=== PATIENT | female | born 1955 | race Two or more races ===

== ENCOUNTER 2020-12-30 10:27 | Outpatient (CLI) | payer OTHER | END 2020-12-30 10:34 | disposition home or self-care (01) | LOC: MAMO-SONO 10:27 | PROVIDERS: ATTEND Obstetrics & Gynecology | DX: N60.11 Diffuse cystic mastopathy of right breast (principal); Z12.31 Encounter for screening mammogram for malignant neoplasm of breast; Z87.898 Personal history of other specified conditions; N64.59 Other signs and symptoms in breast ==

== ENCOUNTER 2021-01-27 12:59 | Outpatient (CLI) | payer OTHER | END 2021-01-27 13:05 | disposition home or self-care (01) | LOC: NUCLEAR 12:59 | PROVIDERS: ATTEND Obstetrics & Gynecology | DX: M81.0 Age-related osteoporosis without current pathological fracture (principal) ==

== ENCOUNTER 2022-08-08 13:51 | Outpatient (CLI) | payer OTHER | END 2022-08-08 14:00 | disposition home or self-care (01) | LOC: MAMO-SONO 13:51 | PROVIDERS: ATTEND Obstetrics & Gynecology | DX: N60.11 Diffuse cystic mastopathy of right breast (principal) ==

== ENCOUNTER 2022-10-27 12:55 | Outpatient (CLI) | payer OTHER | END 2022-10-27 12:59 | disposition home or self-care (01) | LOC: SONOGRAMA 12:55 | PROVIDERS: ATTEND Specialist | DX: Q63.1 Lobulated, fused and horseshoe kidney (principal); D30.00 Benign neoplasm of unspecified kidney ==

== ENCOUNTER 2022-11-21 07:09 | Outpatient (CLI) | payer OTHER | END 2022-11-21 07:10 | disposition home or self-care (01) | LOC: NUCLEAR 07:09 | PROVIDERS: ATTEND Internal Medicine | DX: I25.118 Atherosclerotic heart disease of native coronary artery with other forms of angina pectoris (principal); R06.01 Orthopnea; E78.2 Mixed hyperlipidemia | CPT/HCPCS: 78452; 93017; A9500 ==

== ENCOUNTER 2023-12-03 10:09 | Outpatient (CLI) | payer OTHER | END 2023-12-03 10:13 | disposition home or self-care (01) | LOC: RAD 10:09 | PROVIDERS: ATTEND Specialist | DX: J45.998 Other asthma (principal) ==

== ENCOUNTER 2023-12-31 08:31 | Outpatient (CLI) | payer OTHER | END 2023-12-31 08:40 | disposition home or self-care (01) | LOC: MAMO-SONO 08:31 | PROVIDERS: ATTEND Obstetrics & Gynecology | DX: N60.11 Diffuse cystic mastopathy of right breast (principal); Z12.31 Encounter for screening mammogram for malignant neoplasm of breast ==

== ENCOUNTER 2024-01-04 13:14 | Outpatient (CLI) | payer OTHER | END 2024-01-04 13:15 | disposition home or self-care (01) | LOC: NUCLEAR 13:14 | PROVIDERS: ATTEND Obstetrics & Gynecology | DX: M81.0 Age-related osteoporosis without current pathological fracture (principal) ==

== ENCOUNTER 2024-10-31 07:53 | Outpatient (CLI) | payer OTHER | END 2024-10-31 07:54 | disposition home or self-care (01) | LOC: NUCLEAR 07:53 | PROVIDERS: ATTEND Specialist | DX: D35.1 Benign neoplasm of parathyroid gland (principal) | CPT/HCPCS: 78072; A9500 ==

== ENCOUNTER 2025-03-18 09:46 | Outpatient (CLI) | payer OTHER | END 2025-03-18 09:50 | disposition home or self-care (01) | LOC: MAMO-SONO 09:46 | PROVIDERS: ATTEND Obstetrics & Gynecology | DX: N60.11 Diffuse cystic mastopathy of right breast (principal); Z12.31 Encounter for screening mammogram for malignant neoplasm of breast ==